=== PATIENT | female | born 1965 | race Caucasian/White ===

== ENCOUNTER 2019-07-21 18:48 | Inpatient (IN) | payer OTHER ==
[~2019-07-21] VITALS: Ht 162.6 cm; Wt 89.4 kg
[~2019-07-21 18:48] MED LIST: ADULT LOW DOSE81 MG PO; ALPRAZOLAM; ALPRAZOLAM ER1 MG PO; AMITRIPTYLINE H75 M2 PO; AZITHROMYCIN 2250 MG PO; BACTRIM DS TAB1 EACH PO; CARVEDILOL3.125 MG; COREG; CYCLOBENZAPRINE10 MG; DESYREL50 MG PO; FISH OIL 1,0001 EAC5 PO; FLEXERIL PO; FLONASE 0.05%50 MCG NASAL; HYDROCODON-ACE1 EAC7 PO; IBUPROFEN 800800 M1 PO; IBUPROFEN 800800 MG PO; LORTAB 5-500 T1 EAC1 PO; MECLIZINE HCL25 M1 PO; MEDROLDOSEPACK PO; MELATONIN3 MG; MELOXICAM7.5 MG PO; MOBIC15 MG PO; NORCO 5-325 TA1 EACH PO; NORFLEX100 MG PO; PAROXETINE HCL10 MG PO; PAROXETINE HCL20 MG; PERCOCET 5-3251 EACH PO; PHENERGAN 25 MG25 M1 PO; PREDNISONE 20 M20 M1; PROMETHAZI6.25 MG/2 PO; PYRIDIUM200 MG PO; ROBAXIN 750 MG750 M1; ROBAXIN 750 MG750 M1 PO; ROBAXIN500 MG PO; SIMVASTATIN40 MG PO; TRAMADOL 50 MG50 MG; ULTRAM 50MG TAB50 MG; ULTRAM 50MG TAB50 MG PO; VICODIN 5-5001 EACH PO; VITAMIN D3400 UNIT/1; ZETIA10 MG; ZOFRAN ODT4 MG PO; ZOMIG ZMT5 MG PO
[2019-07-21 18:52] VITALS: BP 133/83
[2019-07-21] MEDS ORDERED: DRIZALMA SPRINK60 MG PO (18:55)
[2019-07-21] MEDS ORDERED: AMBIEN 10 MG TA10 MG PO (18:55)
[2019-07-21] MEDS ORDERED: ZANAFLEX4 M1 PO (18:55)
[2019-07-21] MEDS ORDERED: MELOXICAM7.5 MG PO (18:56)
[2019-07-21] MEDS ORDERED: BENTYL 10 MG CA10 MG PO (18:56)
[2019-07-21 19:25] LABS: ABSOLUTE EOSINOPHILS 0.1 thou/uL (0.0-0.7); ABSOLUTE MONOCYTES 0.5 thou/uL (0.0-1.2); ABSOLUTE NEUTROPHILS 5.4 thou/uL (1.6-8.1); BASOPHILS 0.5 %; EOSINOPHILS 1.1 %; HEMATOCRIT 36.2 % (37.0-47.0); HEMOGLOBIN 12.7 gm/dL (12.0-15.0); LYMPHOCYTES 25.1 %; MCH 28.5 pg (26.0-34.0); MCHC 35.1 g/dL (28.0-37.0); MCV 81.1 fL (80.0-100.0); MONOCYTES 6.4 %; MPV 8.7 fl. (7.2-11.1); NUCLEATED RBCS 0 /100WBC; PLATELET COUNT* 242 thou/uL (150-400); POLYS 66.9 %; RBC 4.46 mil/uL (4.20-5.00); RDW-CV 13.1 % (10.5-14.5); WBC 8.1 thou/uL (4.0-11.0)
[2019-07-21 19:34] LABS: CALCIUM 9.5 mg/dL (8.5-10.1); POTASSIUM 3.7 mmol/L (3.5-5.1)
[2019-07-21 19:45] LABS: ALBUMIN 3.6 g/dL (3.4-5.0); MAGNESIUM 1.6 mg/dL (1.8-2.4); TOTAL BILIRUBIN 0.3 mg/dL (<0.1-1.0); TOTAL PROTEIN 6.8 g/dL (6.4-8.2)
[2019-07-21 20:45] LABS: INFLUENZA A ANTIGEN Negative (Negative)
[2019-07-21 20:46] LABS: INFLUENZA B ANTIGEN Negative (Negative)
[2019-07-21 20:52] LABS: URINE BILIRUBIN NEGATIVE (Negative); URINE BLOOD TRACE (Negative); URINE CLARITY CLEAR; URINE COLOR YELLOW; URINE GLUCOSE-RANDOM NEGATIVE (Negative); URINE KETONES NEGATIVE (Negative); URINE LEUKOCYTES NEGATIVE (Negative); URINE NITRITE NEGATIVE (Negative); URINE PROTEIN NEGATIVE (Negative); URINE SPECIFIC GRAVITY 1.025 (1.005-1.030); URINE UROBILINOGEN 0.2 E.U./dl (0.2-1.0)
[2019-07-21 23:10] VITALS: BP 107/81; BP 119/80
[2019-07-22 04:00] VITALS: BP 119/87
--- NOTE | 2019-07-22 05:12 | NUR ---
PATIENT ADMITTED TO UNIT APPROX 2310. PATIENT'S MAIN CONCERN/GOAL FOR THIS NOC IS TO GET SOME SLEEP. ORDERS RECEIVED FOR PATIENT'S HOME DOSE OF AMBIEN. PATIENT ABLE TO REST. PATIENT HAS NOT HAD ANY EPISODES OF EMESIS THIS SHIFT. CALL LIGHT WITHIN REACH
[2019-07-22 07:30] VITALS: BP 149/92
[2019-07-22 10:02] LABS: ABSOLUTE EOSINOPHILS 0.1 thou/uL (0.0-0.7); ABSOLUTE LYMPHOCYTES 2.5 thou/uL (0.8-5.3); ABSOLUTE MONOCYTES 0.4 thou/uL (0.0-1.2); ABSOLUTE NEUTROPHILS 2.4 thou/uL (1.6-8.1); BASOPHILS 0.4 %; EOSINOPHILS 2.6 %; HEMATOCRIT 31.1 % (37.0-47.0); HEMOGLOBIN 10.6 gm/dL (12.0-15.0); LYMPHOCYTES 45.6 %; MCH 28.5 pg (26.0-34.0); MCV 83.7 fL (80.0-100.0); MONOCYTES 6.9 %; MPV 8.7 fl. (7.2-11.1); NUCLEATED RBCS 0 /100WBC; PLATELET COUNT* 190 thou/uL (150-400); POLYS 44.5 %; RBC 3.71 mil/uL (4.20-5.00); RDW-CV 13.1 % (10.5-14.5); WBC 5.5 thou/uL (4.0-11.0)
[2019-07-22 11:55] VITALS: BP 120/77
--- NOTE | 2019-07-22 12:00 | NUR ---
MET WITH PT TO DISCUSS HOME SITUATION/DC PLANNING. PT LIVES IN HER HOME, NEPHEW STAYS WITH HER. PT IS CURRENTLY UNEMPLOYED AND ON WORK COMP FOR SHOULDER INJURY. SHE IS INDEPENDENT AND ACTIVE. USES NO EQUIPMENT. GAVE COMMUNITY RESOURCES AND SAFETY NET CLINIC INFO. PT PLANS TO RETURN HOME AT DC. PT STATES SHE MAY BE ABLE TO AFFORD MEDS AT DC DEPENDING ON COST. WILL FOLLOW
[2019-07-22 12:08] VITALS: BP 120/77
--- NOTE | 2019-07-22 13:40 | EKG ---
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: [place] : 1965 Requested By: Uma Renteria Order Number: [id number] MD: Michelet Monte Measurements Intervals [place] Rate: 101 P: 53 VT: 148 QRS: 29 QRSD: 87 T: 47 QT: 340 QTc: 441 Interpretive Statements Sinus tachycardia RSR' in V1 or V2, right VCD or RVH Compared to ECG 06/21/2012 08:19:15 Sinus rhythm no longer present Electronically Signed On 07-22-2019 13:39:26 HELP DESK ANALYST by Michelet Monte [email or web address] <ELECTRONICALLY SIGNED> By: Michelet Monte MD, [facility] 07/22/19 1339 18 18 Michelet Monte MD, [facility] /EPI
[2019-07-22 15:07] LABS: CALCIUM 7.9 mg/dL (8.5-10.1); CREATININE 0.9 mg/dL (0.6-1.3); POTASSIUM 3.7 mmol/L (3.5-5.1)
[2019-07-22 19:57] VITALS: BP 119/75
[2019-07-23 00:03] VITALS: BP 120/77
[2019-07-23 04:33] VITALS: BP 116/73
[2019-07-23 05:18] LABS: HEMATOCRIT 28.5 % (37.0-47.0); HEMOGLOBIN 9.8 gm/dL (12.0-15.0); MCH 28.4 pg (26.0-34.0); MCHC 34.3 g/dL (28.0-37.0); MCV 82.7 fL (80.0-100.0); RBC 3.44 mil/uL (4.20-5.00); RDW-CV 13.2 % (10.5-14.5); WBC 3.7 thou/uL (4.0-11.0)
[2019-07-23 05:31] LABS: CALCIUM 7.7 mg/dL (8.5-10.1); CREATININE 0.8 mg/dL (0.6-1.3); MAGNESIUM 2.1 mg/dL (1.8-2.4); POTASSIUM 3.9 mmol/L (3.5-5.1)
--- NOTE | 2019-07-23 05:46 | NUR ---
PT IS ABLE TO COMMUNICATE HER NEEDS TO STAFF EFFECTIVELY. CURRENT PAIN MEDICATION REGIMEN HAS BEEN ADEQUATE FOR CONTROLLING HER PAIN UP TO THIS TIME. SHE IS NOW ON A HEART HEALTHY DIET AND TOLERATING IT WELL.
[2019-07-23 08:00] VITALS: BP 144/76
[2019-07-23] MEDS ORDERED: LIDOPATCH1 EACH TOP (11:19)
[2019-07-23] MEDS ORDERED: PANTOPRAZOLE SO40 M1 PO (11:19)
[2019-07-23] MEDS ORDERED: TRAMADOL 50 MG50 MG PO ×6 (11:19→18:05)
[2019-07-23] MEDS ORDERED: OXYCODONE HCL 55 MG PO ×2 (11:19→14:03)
[2019-07-23] MEDS ORDERED: CARAFATE 1 GM TA1 G1 PO (11:19)
[2019-07-23 11:38] VITALS: BP 141/73
[2019-07-23 14:00] VITALS: BP 141/73
--- NOTE | 2019-07-23 14:05 | NUR ---
ASSUMED PT CARE AT 0730. ASSESSMENT COMPLETED CHARTED. ABLE TO MAKE NEEDS KNOWN. DISCHARGE APPROVED. DISCHARGE WENT OVER WITH PT, IV AND HEART MONITOR REMOVED. PT HAD FRIEND TAKE HER HOME, TOOK PT OUT TO CAR WITH MATH TUTOR AT 1405. NO COMMENTS, QUESTIONS OR CONCERNS NOTED. ALL BELONGINGS TAKEN WITH PT.
--- NOTE | 2019-07-23 15:09 | NUR ---
ORDERS NOTED FOR DC, MET WITH PT AND DISCUSSED MEDS AND COST. SHE IS FAMILIAR WITH [employer]. PROVIDED CAB VOUCHER HOME
--- NOTE | 2019-07-25 09:30 | CON ---
[address] [address] CONSULTATION Name: NIGELNICK ERNESTO Room: [address] IN M.R.#: [id number] Admission: 07/21/19 Attend Phys: Randy Velarde MD Discharge: 07/23/19 Date of : 63 Report #: [id number] THIS REPORT FOR: //name// CC: Randy Marshall MD DICTATED BY: Colette Goodman [facility] DATE OF SERVICE: 07/22/2019 Please note at the time of this dictation, the patient was seen and physically examined by myself. REASON FOR CONSULTATION: Hematemesis, nausea and vomiting. HISTORY OF PRESENT ILLNESS: This is a pleasant 54-year-old female who presented to the Emergency Room with worsening of her nausea and vomiting, in which she had noted black and chunky vomitus which she had had consistently over the past 7 hours prior to admission. The patient states prior to this starting, she was having a little bit of left upper quadrant discomfort that was diffuse as well as with some nauseous. She has had a decreased appetite with all of this as well. She recently had started taking some meloxicam approximately 3 days ago, in which she has taken about 6 tablets for a rotator cuff injury secondary to pain that occurred at work. Otherwise, she does not take any NSAIDs on a regular basis and that just started. Prior to her starting to take the meloxicam, she was having no issues with any nausea, vomiting or any tummy pain. She states her bowels typically move daily, soft and formed. She has not noticed any black stools yet, but she really has not had any intake over the last several days. The patient does have a history of having upper and lower scopes done in the past for nausea, vomiting and diarrhea. When she lived back in [place], her last upper scope was done in 2010, she was told she had a hiatal hernia. Last colonoscopy was done at that time as well and showed that she had hemorrhoids, otherwise were essentially negative. It was felt at that time when she had that what she moved away from the area, she was in a bad relationship and her symptoms completely resolved. ALLERGIES: NAPROXEN, STATINS. MEDICATIONS: From home include Zanaflex, Bentyl, Mobic, duloxetine and Ambien. PAST MEDICAL HISTORY: PTSD, hiatal hernia, history of migraines, history of hypertension, vertigo, bulging disk. PAST SURGICAL HISTORY: Plantar fasciitis, bilateral knee surgeries, hysterectomy, tonsillectomy. [place] [address] CONSULTATION Name: NICK MANNING Room: [address] IN M.R.#: [id number] Admission: 07/21/19 Attend Phys: Randy Velarde MD Discharge: 07/23/19 Date of : 63 Report #: [id number] FAMILY HISTORY: Mother with esophageal cancer and a maternal aunt with breast cancer. SOCIAL HISTORY: Occasional alcohol socially. Denies any tobacco or illegal drug use. REVIEW OF SYSTEMS: Twelve-point review of systems is essentially negative except what is mentioned in the HPI. PHYSICAL EXAMINATION: VITAL SIGNS: Temperature 37.1, pulse 108, respirations 18, blood pressure 149/92. HEART: Regular rate and rhythm. LUNGS: Clear. ABDOMEN: Soft, positive bowel sounds in all 4 quadrants with tenderness noted in the left upper quadrant. LABORATORY DATA: Hemoglobin 10.6, on admission she was 12.7, white count is 5.5, platelets is 190. LFTs are completely normal. BUN is 41. CT of the abdomen and pelvis showed gallbladder was normal, otherwise essentially negative. IMPRESSION: 1. Hematemesis. 2. Nausea. 3. Decreased appetite. 4. Abdominal pain. 5. Gastroesophageal reflux disease, worsening over the last few days. 6. Recently starting of meloxicam. 7. Family history mother with esophageal cancer and maternal aunt with breast cancer. PLAN: 1. Protonix drip. 2. EGD today with Dr. Aquino. 3. Labs, CBC and BMP tomorrow. 4. Further recommendations to be made once the procedure has been performed. Thank you for allowing us to participate in this patient's care. Please do not hesitate to call with any questions in regard to this consult. <ELECTRONICALLY SIGNED> By: Gregory Aquino DO 07/25/19 0930 1204 1643Gavni Aquino DO /nt
--- NOTE | 2019-07-27 11:07 | PATH ---
[address] [address] PATHOLOGY RPT PROCEDURE Name: NICK MANNING Room: [address] IN M.R.#: [id number] Admission: 07/21/19 Date of : 63 Discharge: 07/23/19 Report #: [id number] Path Case #: [id number] [facility] Accession Number: [id number] . 01 Material submitted: . PART A: stomach - ANTRAL BIOPSY FOR H-PYLORI PART B: esophagus - ESOPHAGEAL BIOPSY AT 36CM R/O BARRETTS . 01 Clinical history: . A. For H. pylori B. Rule out Whitaker's . 02 Diagnosis: A. Antral biopsy: - Nonspecific mild chronic and focal active antral gastritis, negative for Helicobacter pylori organisms, granulomas and dysplasia. . B. Esophageal biopsy at 36 cm: - Benign esophageal and gastric/columnar types mucosa with moderate chronic and active inflammation typical of reflux, negative for goblet cells/diagnostic Whitaker's metaplasia, granulomas and dysplasia. (LALO:pit 07/26/2019) . Special stain on A: H. pylori immuno. P 07/27/2019 1029 Local . 02 Electronically signed: . Jarad Randolph MD, Pathologist NPI- [id number] . 01 Gross description: . A. The specimen is received in formalin, labeled "Nick Manning, antral biopsy" and consists of 2 fragments of pink-borjas tissue measuring 0.3 x 0.3 cm and 0.4 x 0.3 cm which are entirely submitted in A1. . B. The specimen is received in formalin, labeled "Nick Manning, esophageal biopsy at 36 cm" and consists of a fragment of pink-pathak tissue measuring 0.5 x 0.4 x 0.1 cm which is entirely submitted in B1. (SDY; 07/23/2019) SYU/SYU 07/23/2019 1559 Local . 02 Pathologist provided ICD-10: K29.50, K20.9 . 02 CPT . 935618, 029778, J29058 Specimen Comment: A courtesy copy of this report has been sent to [phone] 344-235[place], [place] [address] PATHOLOGY RPT PROCEDURE Name: NICK MANNING ERNESTO Room: [address] IN M.R.#: [id number] Admission: 07/21/19 Date of : 63 Discharge: 07/23/19 Report #: [id number] Path Case #: [id number] Specimen Comment: [id number], Specimen Comment: Report sent to ,DR LARSEN / DR HEART Performed at: [address], [place], [place] [id number] MD Juan Conrad MD Phone: [phone] Performed at: 02 [facility] [address], [place], [place] [id number] MD Jarad Randolph MD Phone: [phone]
== END 2019-07-23 14:05 | disposition home or self-care (01) | DRG 379 ==
LOC: M.ERS 18:48 → M.TBA-ER 21:37 → M.2W 21:37
PROVIDERS: Internal Medicine; Nurse Practitioner Adult Health; Physician Assistant; ADMIT Internal Medicine
PROC: 0DB58ZX Excision of Esophagus, Via Natural or Artificial Opening Endoscopic, Diagnostic (ICD-10-PCS; principal; 2019-07-22)
PROC: 0DB68ZX Excision of Stomach, Via Natural or Artificial Opening Endoscopic, Diagnostic (ICD-10-PCS; principal; 2019-07-22)
DX: K25.4 Chronic or unspecified gastric ulcer with hemorrhage (principal); G89.29 Other chronic pain; K29.81 Duodenitis with bleeding; K92.0 Hematemesis; M54.9 Dorsalgia, unspecified; F32.9 Major depressive disorder, single episode, unspecified; G43.909 Migraine, unspecified, not intractable, without status migrainosus; I10 Essential (primary) hypertension; K21.9 Gastro-esophageal reflux disease without esophagitis; F43.10 Post-traumatic stress disorder, unspecified; M75.101 Unspecified rotator cuff tear or rupture of right shoulder, not specified as traumatic; K20.9 Esophagitis, unspecified; Z90.710 Acquired absence of both cervix and uterus; Z88.8 Allergy status to other drugs, medicaments and biological substances; Z85.01 Personal history of malignant neoplasm of esophagus; Z85.3 Personal history of malignant neoplasm of breast; Z80.8 Family history of malignant neoplasm of other organs or systems

== ENCOUNTER 2019-08-17 16:28 | Emergency (ER) | payer OTHER ==
[~2019-08-17] VITALS: Ht 162.6 cm; Wt 84.8 kg
--- NOTE | ~2019-08-17 | EKG ---
[place] [address] ELECTROCARDIOGRAM REPORT Name: NIGELNICK ERNESTO Room: [facility]#: [id number] Admission: 08/17/19 Attend Phys: Discharge: 08/17/19 Date of : 63 Date of Service: 08/17/19 1647 Report #: [id number] THIS REPORT FOR: cc: FAM - No family physician/PCP FAM - No family physician/PCP Sameer Estrella MD ~ THIS REPORT FOR: //name// [facility] ED Test Date: 2019-08-17 Test Time: 16:47:14 Pat Name: NICK MANNING Department: Room: Gender: F Director Marketing Analytics: : 1965 Requested By: Caleb Barnes Order Number: [id number] MD: Measurements Intervals [place] Rate: 85 P: 48 [place]: 161 QRS: 4 QRSD: 93 T: 46 QT: 379 QTc: 451 Interpretive Statements Sinus rhythm RSR' in V1 or V2, right VCD or RVH Baseline wander in lead(s) III,aVL,V1,V2,V3 Compared to ECG 07/21/2019 19:19:16 Sinus tachycardia no longer present [email or web address] By: 46 46 Epiphany EpiphanyMD /JUDITH
[~2019-08-17 16:28] MED LIST changes: +AMBIEN 10 MG TA10 MG PO; +BENTYL 10 MG CA10 MG PO; +CARAFATE 1 GM TA1 G1 PO; +DRIZALMA SPRINK60 MG PO; +LIDOPATCH1 EACH TOP; +OXYCODONE HCL 55 MG PO; +PANTOPRAZOLE SO40 M1 PO; +TRAMADOL 50 MG50 MG PO; +ZANAFLEX4 M1 PO
[2019-08-17 17:29] LABS: ABSOLUTE EOSINOPHILS 0.1 thou/uL (0.0-0.7); ABSOLUTE LYMPHOCYTES 2.2 thou/uL (0.8-5.3); ABSOLUTE MONOCYTES 0.4 thou/uL (0.0-1.2); ABSOLUTE NEUTROPHILS 2.8 thou/uL (1.6-8.1); BASOPHILS 0.5 %; EOSINOPHILS 2.2 %; HEMATOCRIT 34.2 % (37.0-47.0); HEMOGLOBIN 11.4 gm/dL (12.0-15.0); LYMPHOCYTES 39.6 %; MCH 26.4 pg (26.0-34.0); MCHC 33.4 g/dL (28.0-37.0); MCV 79.1 fL (80.0-100.0); MONOCYTES 6.8 %; MPV 8.9 fl. (7.2-11.1); NUCLEATED RBCS 0 /100WBC; PLATELET COUNT* 226 thou/uL (150-400); POLYS 50.9 %; RBC 4.32 mil/uL (4.20-5.00); RDW-CV 13.9 % (10.5-14.5); WBC 5.5 thou/uL (4.0-11.0)
[2019-08-17 17:39] LABS: CALCIUM 8.4 mg/dL (8.5-10.1); CREATININE 0.8 mg/dL (0.6-1.3)
[2019-08-17 17:42] LABS: POTASSIUM 2.9 mmol/L (3.5-5.1)
[2019-08-17 17:44] LABS: ALBUMIN 3.8 g/dL (3.4-5.0); TOTAL BILIRUBIN 0.3 mg/dL (<0.1-1.0); TOTAL PROTEIN 7.3 g/dL (6.4-8.2)
[2019-08-17] MEDS ORDERED: PREDNISONE 20 M20 M1 PO (18:16)
[2019-08-17] MEDS ORDERED: CIPROFLOXACIN500 M1 PO (18:16)
[2019-08-17] MEDS ORDERED: NORCO 5-325 TA1 EAC1 PO (18:16)
[2019-08-17] MEDS ORDERED: FLAGYL500 M1 PO (18:16)
[2019-08-17 18:19] LABS: URINE BILIRUBIN NEGATIVE (Negative); URINE BLOOD NEGATIVE (Negative); URINE CLARITY CLEAR; URINE COLOR YELLOW; URINE GLUCOSE-RANDOM NEGATIVE (Negative); URINE KETONES NEGATIVE (Negative); URINE LEUKOCYTES-REFLEX NEGATIVE (Negative); URINE NITRITE-REFLEX NEGATIVE (Negative); URINE PROTEIN NEGATIVE (Negative); URINE SPECIFIC GRAVITY 1.015 (1.005-1.030); URINE UROBILINOGEN 0.2 E.U./dl (0.2-1.0)
[2019-08-17 18:48] VITALS: BP 160/100
== END 2019-08-17 18:49 | disposition home or self-care (01) ==
LOC: M.ERS 16:28
PROVIDERS: Family Medicine
DX: R10.12 Left upper quadrant pain (principal); I10 Essential (primary) hypertension; F32.9 Major depressive disorder, single episode, unspecified; G89.29 Other chronic pain; M54.9 Dorsalgia, unspecified; G43.909 Migraine, unspecified, not intractable, without status migrainosus; Z90.89 Acquired absence of other organs; Z90.710 Acquired absence of both cervix and uterus; Z88.8 Allergy status to other drugs, medicaments and biological substances; Z88.6 Allergy status to analgesic agent

== ENCOUNTER 2019-11-17 19:40 | Inpatient (IN) | payer OTHER ==
[~2019-11-17] VITALS: Ht 162.6 cm; Wt 84.8 kg
--- NOTE | ~2019-11-17 | CON ---
[address] [address] CONSULTATION Name: NICK MANNING Room: [address] IN M.R.#: [id number] Admission: 11/17/19 Attend Phys: Gretchen Ramsey Discharge: Date of : 63 Report #: [id number] THIS REPORT FOR: //name// cc: AMBROCIO Mcqueen family physician/PCP AMBROCIO - Charisse family physician/PCP ~ THIS REPORT FOR: //name// CC: [facility] physician/PCP Ziyad Ascencio HISTORY OF PRESENT ILLNESS: This is a pleasant 54-year-old female with past medical history significant for peptic ulcer disease, hiatal hernia, history of migraines, hypertension, and vertigo, who was previously seen by us in 07/2019. The patient was noted to have multiple gastric ulcers. The patient at that time was taking Mobic for her rotator cuff tear. Gastroenterology Service has been consulted again for abdominal pain. The patient reports the abdominal pain is similar to her pain in the past, located in the epigastric region, associated with nausea. It is severe, 10/10 in intensity, alleviated with pain medication. She denies any further episodes of hematemesis, hematochezia, or melena since her last hospitalization. No alarm symptoms such as weight loss. PAST MEDICAL HISTORY: Posttraumatic stress disorder, hiatal hernia, migraines, hypertension, vertigo, and bulging disk. PAST SURGICAL HISTORY: Bilateral knee surgery, hysterectomy, and tonsillectomy. SOCIAL HISTORY: The patient takes alcohol intermittently; denies any smoking or recreational drug use. FAMILY HISTORY: The patient reports her brother and mother were diagnosed with esophageal cancer. REVIEW OF SYSTEMS: A comprehensive 12-point review of systems is negative except what is mentioned in the HPI. PHYSICAL EXAMINATION: VITAL SIGNS: Temperature 37.1, pulse rate 96, respirations 18, blood pressure 129/82, and pulse oximetry 97% on room air. GENERAL: The patient is alert, awake, and oriented x3. HEENT: Pupils are equal, round, and reactive to light and accommodation. Mucous membranes are moist. There is no congestion. LUNGS: Clear to auscultation bilaterally. CARDIOVASCULAR: Rate and rhythm regular; S1, S2 present. ABDOMEN: Soft. There is no distention, guarding, or rigidity. EXTREMITIES: Warm, well perfused. There is no edema. SKIN: [place] [address] CONSULTATION Name: NICK MANNING Room: [address] IN [facility]#: [id number] Admission: 11/17/19 Attend Phys: Gretchen Ramsey Discharge: Date of : 63 Report #: [id number] LABORATORY DATA: Hemoglobin 12.1, hematocrit 36.4, platelet count 182, WBC count 6.3; sodium 143, potassium 3.3, chloride 106, bicarbonate 30, BUN 15, creatinine 0.9, bilirubin 0.1, AST 25, ALT 35, alkaline phosphatase 101. IMAGING: Abdomen and pelvis CT: Interval improvement in pancolonic wall thickening described previously, polypoid mass versus thickening of the antrum of the stomach, scarring in the right lung base, no pleural effusion, left renal cyst. ASSESSMENT AND PLAN: This is a pleasant 54-year-old female with prior history of peptic ulcer disease. The patient underwent an EGD in July, which demonstrated several ulcers, one of which was bleeding. The patient presents with abdominal pain again. I will recommend performing an EGD and make further recommendations based on results of EGD. By: 1257 [id number] Coronado MD /nt
[~2019-11-17 19:40] MED LIST changes: +CIPROFLOXACIN500 M1 PO; +FLAGYL500 M1 PO; +NORCO 5-325 TA1 EAC1 PO; +PREDNISONE 20 M20 M1 PO
[2019-11-17 19:48] VITALS: BP 135/75
[2019-11-17 20:45] LABS: URINE BILIRUBIN NEGATIVE (Negative); URINE BLOOD NEGATIVE (Negative); URINE CLARITY CLEAR; URINE COLOR YELLOW; URINE GLUCOSE-RANDOM NEGATIVE (Negative); URINE KETONES NEGATIVE (Negative); URINE LEUKOCYTES-REFLEX NEGATIVE (Negative); URINE NITRITE-REFLEX NEGATIVE (Negative); URINE PROTEIN NEGATIVE (Negative); URINE SPECIFIC GRAVITY >= 1.030 (1.005-1.030); URINE UROBILINOGEN 0.2 E.U./dl (0.2-1.0)
[2019-11-17 20:46] LABS: ABSOLUTE EOSINOPHILS 0.1 thou/uL (0.0-0.7); ABSOLUTE LYMPHOCYTES 2.6 thou/uL (0.8-5.3); ABSOLUTE MONOCYTES 0.5 thou/uL (0.0-1.2); ABSOLUTE NEUTROPHILS 3.1 thou/uL (1.6-8.1); BASOPHILS 0.3 %; EOSINOPHILS 1.9 %; HEMATOCRIT 36.4 % (37.0-47.0); HEMOGLOBIN 12.5 gm/dL (12.0-15.0); LYMPHOCYTES 40.5 %; MCH 26.5 pg (26.0-34.0); MCHC 34.2 g/dL (28.0-37.0); MCV 77.6 fL (80.0-100.0); MPV 8.7 fl. (7.2-11.1); NUCLEATED RBCS 0 /100WBC; PLATELET COUNT* 182 thou/uL (150-400); POLYS 49.3 %; RDW-CV 17.4 % (10.5-14.5); WBC 6.3 thou/uL (4.0-11.0)
[2019-11-17 20:54] LABS: CALCIUM 8.5 mg/dL (8.5-10.1); CREATININE 0.9 mg/dL (0.6-1.3); POTASSIUM 3.4 mmol/L (3.5-5.1)
[2019-11-17 20:59] LABS: ALBUMIN 3.3 g/dL (3.4-5.0); TOTAL BILIRUBIN 0.1 mg/dL (<0.1-1.0); TOTAL PROTEIN 6.3 g/dL (6.4-8.2)
[2019-11-17 23:55] VITALS: BP 144/85
[2019-11-18] MEDS ORDERED: LIPITOR80 MG PO (01:09)
[2019-11-18] MEDS ORDERED: TOPROL XL25 MG PO (01:11)
[2019-11-18] MEDS ORDERED: IRON325 M1 PO (01:12)
[2019-11-18] MEDS ORDERED: PROZAC20 M1 PO (01:13)
[2019-11-18] MEDS ORDERED: HYDROCODON-ACE1 EA10 PO (01:15)
[2019-11-18 01:30] VITALS: BP 127/85
[2019-11-18 08:00] VITALS: BP 129/82
[2019-11-18 10:27] LABS: CALCIUM 7.8 mg/dL (8.5-10.1); CREATININE 0.9 mg/dL (0.6-1.3); MAGNESIUM 1.9 mg/dL (1.8-2.4); POTASSIUM 3.3 mmol/L (3.5-5.1)
--- NOTE | 2019-11-18 14:21 | EKG ---
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[place] : 1965 Requested By: Ziyad Ascencio Order Number: [id number] Marti MD: Michelet Monte Measurements Intervals [place] Rate: 86 P: 5 [place]: 138 QRS: 22 QRSD: 132 T: 56 QT: 379 QTc: 454 Interpretive Statements Sinus rhythm Nonspecific intraventricular conduction delay Borderline repolarization abnormality Compared to ECG 08/17/2019 16:47:14 no change Electronically Signed On 11-18-2019 14:20:08 CDT by Michelet Monte [email or web address] <ELECTRONICALLY SIGNED> By: Michelet Monte MD, FACC 11/18/19 1420 50 50 Michelet Monte MD, [facility] /EPI
[2019-11-18 16:00] VITALS: BP 129/82; BP 141/96
[2019-11-18 20:00] VITALS: BP 129/73
[2019-11-19 08:20] VITALS: BP 124/82
[2019-11-19 14:30] VITALS: BP 124/82
== END 2019-11-19 15:30 | disposition home or self-care (01) | DRG 384 ==
LOC: M.ERS 19:40 → M.ORTHSURG 22:57 → M.TBA-ER 22:57 → M.ORTHSURG 11-18 00:32
PROVIDERS: Internal Medicine; Personal Emergency Response Attendant; ADMIT Internal Medicine
PROC: 0DB68ZX Excision of Stomach, Via Natural or Artificial Opening Endoscopic, Diagnostic (ICD-10-PCS; principal; 2019-11-18)
DX: K27.9 Peptic ulcer, site unspecified, unspecified as acute or chronic, without hemorrhage or perforation (principal); G89.29 Other chronic pain; M54.9 Dorsalgia, unspecified; F32.9 Major depressive disorder, single episode, unspecified; Z90.710 Acquired absence of both cervix and uterus; G43.909 Migraine, unspecified, not intractable, without status migrainosus; Z88.8 Allergy status to other drugs, medicaments and biological substances; K22.70 Barrett's esophagus without dysplasia; E66.9 Obesity, unspecified; Z68.32 Body mass index [BMI] 32.0-32.9, adult; E87.6 Hypokalemia; K25.9 Gastric ulcer, unspecified as acute or chronic, without hemorrhage or perforation

== ENCOUNTER 2020-03-01 03:27 | Emergency (ER) | payer OTHER ==
[~2020-03-01] VITALS: Ht 162.6 cm; Wt 80.3 kg
[~2020-03-01 03:27] MED LIST changes: +HYDROCODON-ACE1 EA10 PO; +IRON325 M1 PO; +LIPITOR80 MG PO; +PROZAC20 M1 PO; +TOPROL XL25 MG PO
[2020-03-01] MEDS ORDERED: BUPROPION XL150 MG PO (03:42)
[2020-03-01 05:05] LABS: URINE BILIRUBIN NEGATIVE (Negative); URINE BLOOD NEGATIVE (Negative); URINE CLARITY CLEAR; URINE COLOR YELLOW; URINE GLUCOSE-RANDOM NEGATIVE (Negative); URINE KETONES NEGATIVE (Negative); URINE LEUKOCYTES-REFLEX NEGATIVE (Negative); URINE NITRITE-REFLEX NEGATIVE (Negative); URINE PROTEIN NEGATIVE (Negative); URINE SPECIFIC GRAVITY 1.025 (1.005-1.030); URINE UROBILINOGEN 0.2 E.U./dl (0.2-1.0)
[2020-03-01 05:12] LABS: ABSOLUTE EOSINOPHILS 0.1 thou/uL (0.0-0.7); ABSOLUTE MONOCYTES 0.4 thou/uL (0.0-1.2); ABSOLUTE NEUTROPHILS 2.4 thou/uL (1.6-8.1); BASOPHILS 0.4 %; EOSINOPHILS 1.5 %; HEMATOCRIT 40.6 % (37.0-47.0); HEMOGLOBIN 13.8 gm/dL (12.0-15.0); LYMPHOCYTES 40.2 %; MCH 28.5 pg (26.0-34.0); MCHC 34.1 g/dL (28.0-37.0); MCV 83.6 fL (80.0-100.0); MONOCYTES 8.4 %; MPV 8.3 fl. (7.2-11.1); NUCLEATED RBCS 0 /100WBC; PLATELET COUNT* 216 thou/uL (150-400); POLYS 49.5 %; RBC 4.85 mil/uL (4.20-5.00); RDW-CV 13.9 % (10.5-14.5); WBC 4.9 thou/uL (4.0-11.0)
[2020-03-01 05:33] LABS: CALCIUM 8.4 mg/dL (8.5-10.1); CREATININE 0.9 mg/dL (0.6-1.3); POTASSIUM 3.6 mmol/L (3.5-5.1)
[2020-03-01 05:37] LABS: ALBUMIN 3.7 g/dL (3.4-5.0); TOTAL BILIRUBIN 0.4 mg/dL (<0.1-1.0)
[2020-03-01] MEDS ORDERED: HYDROCODON-ACE1 EAC8 PO (06:18)
[2020-03-01 06:24] VITALS: BP 130/80
== END 2020-03-01 06:25 | disposition home or self-care (01) ==
LOC: M.ERS 03:27
PROVIDERS: Emergency Medicine
DX: S32.040A Wedge compression fracture of fourth lumbar vertebra, initial encounter for closed fracture (principal); S32.050A Wedge compression fracture of fifth lumbar vertebra, initial encounter for closed fracture; S40.012A Contusion of left shoulder, initial encounter; S40.011A Contusion of right shoulder, initial encounter; S00.83XA Contusion of other part of head, initial encounter; M54.2 Cervicalgia; G89.29 Other chronic pain; I10 Essential (primary) hypertension; G43.909 Migraine, unspecified, not intractable, without status migrainosus; Z90.710 Acquired absence of both cervix and uterus; Z90.89 Acquired absence of other organs; Z88.8 Allergy status to other drugs, medicaments and biological substances; W06.XXXA Fall from bed, initial encounter; Y93.89 Activity, other specified; Y92.89 Other specified places as the place of occurrence of the external cause; Y99.8 Other external cause status

== ENCOUNTER 2020-04-30 19:07 | Emergency (ER) | payer OTHER ==
[~2020-04-30] VITALS: Ht 162.6 cm; Wt 81.7 kg
[~2020-04-30 19:07] MED LIST changes: +BUPROPION XL150 MG PO; +HYDROCODON-ACE1 EAC8 PO
[2020-04-30] MEDS ORDERED: HYDROCODON-ACE1 EAC7 PO (20:18)
[2020-04-30] MEDS ORDERED: DIAZEPAM 5 MG5 MG PO (20:18)
[2020-04-30 20:35] VITALS: BP 123/75
== END 2020-04-30 20:50 | disposition home or self-care (01) ==
LOC: M.ERS 19:07
DX: M25.511 Pain in right shoulder (principal); M25.512 Pain in left shoulder; G89.29 Other chronic pain; Z88.8 Allergy status to other drugs, medicaments and biological substances; Z90.710 Acquired absence of both cervix and uterus; G43.909 Migraine, unspecified, not intractable, without status migrainosus; Z90.89 Acquired absence of other organs

== ENCOUNTER 2020-10-28 20:33 | Emergency (ER) | payer OTHER ==
[~2020-10-28] VITALS: Ht 162.6 cm; Wt 113.4 kg
[~2020-10-28 20:33] MED LIST changes: +DIAZEPAM 5 MG5 MG PO
[2020-10-28 21:04] LABS: URINE BILIRUBIN NEGATIVE (Negative); URINE BLOOD NEGATIVE (Negative); URINE CLARITY CLEAR; URINE COLOR YELLOW; URINE GLUCOSE-RANDOM NEGATIVE (Negative); URINE KETONES NEGATIVE (Negative); URINE LEUKOCYTES-REFLEX NEGATIVE (Negative); URINE NITRITE-REFLEX NEGATIVE (Negative); URINE PROTEIN NEGATIVE (Negative); URINE SPECIFIC GRAVITY <= 1.005 (1.005-1.030); URINE UROBILINOGEN 0.2 E.U./dl (0.2-1.0)
[2020-10-28 21:18] LABS: ABSOLUTE BASOPHILS 0.1 thou/uL (0.0-0.2); ABSOLUTE EOSINOPHILS 0.1 thou/uL (0.0-0.7); ABSOLUTE LYMPHOCYTES 2.3 thou/uL (0.8-5.3); ABSOLUTE MONOCYTES 0.5 thou/uL (0.0-1.2); ABSOLUTE NEUTROPHILS 4.8 thou/uL (1.6-8.1); BASOPHILS 0.7 %; EOSINOPHILS 0.9 %; HEMATOCRIT 41.1 % (37.0-47.0); HEMOGLOBIN 13.7 gm/dL (12.0-15.0); LYMPHOCYTES 29.4 %; MCH 27.6 pg (26.0-34.0); MCHC 33.3 g/dL (28.0-37.0); MCV 83.1 fL (80.0-100.0); MONOCYTES 6.5 %; MPV 7.8 fl. (7.2-11.1); NUCLEATED RBCS 0 /100WBC; PLATELET COUNT* 249 thou/uL (150-400); POLYS 62.5 %; RBC 4.94 mil/uL (4.20-5.00); RDW-CV 13.8 % (10.5-14.5); WBC 7.7 thou/uL (4.0-11.0)
[2020-10-28 21:22] LABS: CALCIUM 8.6 mg/dL (8.5-10.1); CREATININE 0.8 mg/dL (0.6-1.3); POTASSIUM 3.7 mmol/L (3.5-5.1)
[2020-10-28 21:27] LABS: ALBUMIN 3.6 g/dL (3.4-5.0); TOTAL BILIRUBIN 0.3 mg/dL (<0.1-1.0); TOTAL PROTEIN 7.4 g/dL (6.4-8.2)
[2020-10-29] MEDS ORDERED: ULTRAM 50MG TAB50 MG PO (00:55)
[2020-10-29] MEDS ORDERED: ZOFRAN ODT4 MG PO (00:55)
[2020-10-29 01:03] VITALS: BP 128/78
== END 2020-10-29 01:03 | disposition home or self-care (01) ==
LOC: M.ERS 20:33
PROVIDERS: Personal Emergency Response Attendant
DX: K52.9 Noninfective gastroenteritis and colitis, unspecified (principal); I10 Essential (primary) hypertension; G43.909 Migraine, unspecified, not intractable, without status migrainosus; Z88.8 Allergy status to other drugs, medicaments and biological substances; Z90.710 Acquired absence of both cervix and uterus; Z90.89 Acquired absence of other organs

== ENCOUNTER 2021-06-12 02:20 | Emergency (ER) | payer OTHER ==
[~2021-06-12] VITALS: Ht 162.6 cm; Wt 93.0 kg
[2021-06-12] MEDS ORDERED: REMERON45 M1 PO (02:31)
[2021-06-12] MEDS ORDERED: FLOMAX0.4 MG PO (02:31)
[2021-06-12] MEDS ORDERED: ACETAMINOPHEN-1 EAC2 PO (06:13)
[2021-06-12 06:24] VITALS: BP 105/46
== END 2021-06-12 06:25 | disposition home or self-care (01) ==
LOC: M.ERS 02:20
DX: M54.59 Other low back pain (principal); N23 Unspecified renal colic; F32.9 Major depressive disorder, single episode, unspecified; G43.909 Migraine, unspecified, not intractable, without status migrainosus; I10 Essential (primary) hypertension; Z90.710 Acquired absence of both cervix and uterus; Z90.89 Acquired absence of other organs; Z88.8 Allergy status to other drugs, medicaments and biological substances; Z79.899 Other long term (current) drug therapy